=== PATIENT | male | born 1955 | race African-American/Black ===

== ENCOUNTER 2021-12-09 14:41 | Emergency (ER) | payer MEDICARE, MEDICAID ==
[~2021-12-09] VITALS: Ht 175.3 cm; Wt 64.0 kg
[2021-12-09] MEDS ORDERED: DOCUSATE SODIUM SUGAR FREE 100MG/10ML UDC NG ONE (16:30)
[2021-12-09 18:04] VITALS: BP 109/62
== END 2021-12-09 18:06 | disposition home or self-care (01) ==
LOC: ER 14:41
DX: H61.21 Impacted cerumen, right ear (principal); Z98.890 Other specified postprocedural states
CPT/HCPCS: 99282; 99283

== ENCOUNTER 2023-01-04 16:37 | Emergency (ER) | payer MEDICARE, MEDICAID ==
[~2023-01-04] VITALS: Ht 175.3 cm; Wt 69.0 kg
[2023-01-04] MEDS ORDERED: AMOX1TAB16 MT (19:55)
[2023-01-04] MEDS ORDERED: NAPR-681 MT (19:55)
[2023-01-04 20:30] VITALS: BP 121/60
[2023-01-04] MEDS ORDERED: KETOROLAC 15MG/ML VIAL IM ONE (20:30)
== END 2023-01-04 20:38 | disposition home or self-care (01) ==
LOC: ER 16:37
DX: K04.7 Periapical abscess without sinus (principal)
CPT/HCPCS: 96372; 99283; J1885